=== PATIENT | female | born 1950 | race American Indian/Alaskan Native ===

== ENCOUNTER 2020-01-28 09:26 | Outpatient (CLI) | payer MEDICARE ==
--- NOTE | 2020-01-28 10:17 | Ultrasound Report ---
LEFT BREAST ULTRASOUND HISTORY: Left outer mammographic asymmetry. COMPARISON: 11/19/2019 and 11/05/2019 mammograms. FINDINGS: Sonographic evaluation focused upon the outer location of the left breast from 12-6 o'clock demonstrates no distinct abnormality to correlate with the mammographic density. However, a hetero geneous oval solid mass is identified at 2:00 4 cm from the nipple. It measures 1.4 x 0.5 x 1.2 cm. T here is no mammographic correlate. IMPRESSION: 1. A 1.4 cm solid left breast mass at 2:00 4 cm from the nipple. Recommend ultrasound-guided needle b iopsy to exclude malignancy. 2. No ultrasound correlate for a mammographic density seen only on one mammographic view. I would con car whacker this a benign mammographic finding. BIRADS 4: Suspicious abnormality. Signer Name: Anand Aragon MD Signed: 01/28/2020 10:13 AM Workstation Name: [id number]
== END 2020-01-28 09:27 | disposition home or self-care (01) ==
LOC: SPVWC 09:26
PROVIDERS: ATTEND Surgery
DX: N63.23 Unspecified lump in the left breast, lower outer quadrant (principal)

== ENCOUNTER 2020-11-09 08:39 | Outpatient (CLI) | payer MEDICARE ==
--- NOTE | 2020-11-09 09:43 | Mammography Report ---
DIGITAL SCREENING MAMMOGRAM WITH CAD, 11/09/2020 CLINICAL INFORMATION / INDICATION: Routine screening mammography. TECHNIQUE: Digital bilateral 2D mammography was obtained in the craniocaudal and mediolateral obliqu e projections. This examination was interpreted with the benefit of Computer-Aided Detection analysis . COMPARISON: Diagnostic left mammogram from 03/24/2020, screening mammograms from 11/05/2019 and 07/19/20 16 FINDINGS: Breast Density: There are scattered areas of fibroglandular density. No dominant mass, suspicious calcifications, or architectural distortion in either breast. A biopsy clip is again seen in the 2:00 left breast. IMPRESSION: No mammographic evidence of malignancy. Follow up recommendation: Routine yearly BI-RADS Category 2: Benign. A "normal" or negative report should not discourage follow up or biopsy of a clinically significant f inding. A written summary of these findings will be mailed to the patient. The patient will be entered into a mammography reporting system which will generate a reminder letter for the patient's next appointmen t at the appropriate interval. The [employer] recommends yearly mammograms starting at age 40 and continuing as l dov as a woman is in good health. Breast MRI is recommended for women with an approximate 20-25% or greater lifetime risk of breast cancer, including women with a strong family history of breast or ova trini cancer or who have been treated for Hodgkin's disease. Signer Name: Justin Fields MD Signed: 11/09/2020 9:39 AM Workstation Name: [id number]
== END 2020-11-09 08:40 | disposition home or self-care (01) ==
LOC: SPVWC 08:39
PROVIDERS: ATTEND Surgery
DX: Z12.31 Encounter for screening mammogram for malignant neoplasm of breast (principal); N64.89 Other specified disorders of breast
CPT/HCPCS: 77067